=== PATIENT | male | born 1995 | race African-American/Black ===

== ENCOUNTER 2019-02-10 14:22 | Emergency (ER) | payer BC ==
[2019-02-10] MEDS ORDERED: ACETAMINOPHEN 325 MG TABLET PO ONE (15:03)
[2019-02-10] MEDS ORDERED: IBUPROFEN 600 MG TABLET PO ONE (15:04)
--- NOTE | 2019-02-10 15:05 | ER Document Report ---
HPI - HPI Time Seen by Provider: 02/10/19 14:53 Pain Level: 3 Context: Patient is a 23-year-old male who presents the emergency department with a chief complaint of right hand pain. He states that he was tossing a ball around yesterday and he went and dove for the ball and hit the dorsal aspect of his hand on the ground. He was okay yesterday, and when he woke up this morning he had increased swelling and pain to the area. He has not taken any medication to help with his pain. Denies any past medical history. He does not take any medications. - CONSTITUTIONAL Constitutional: DENIES: Fever, Chills - EENT EENT: DENIES: Sore Throat - NEURO Neurology: DENIES: Headache - CARDIOVASCULAR Cardiovascular: DENIES: Chest pain - RESPIRATORY Respiratory: DENIES: Trouble Breathing - MUSCULOSKELETAL Musculoskeletal: REPORTS: Extremity pain - right hand, Swelling - right hand. DENIES: Back Pain, Neck Pain - DERM Skin Color: Normal Skin Problems: None Past Medical History - Social History Smoking Status: Never Smoker Family History: Reviewed & Not Pertinent Vertical Provider Document - CONSTITUTIONAL Agree With Documented VS: Yes Exam Limitations: No Limitations General Appearance: No Apparent Distress - INFECTION CONTROL TRAVEL OUTSIDE OF THE [place] IN LAST 30 DAYS: No - HEENT HEENT: Atraumatic, Normocephalic, PERRLA - NECK Neck: Normal Inspection - RESPIRATORY Respiratory: Breath Sounds Normal, No Respiratory Distress - CARDIOVASCULAR Cardiovascular: Regular Rate, Regular Rhythm Pulses: Normal: Radial - MUSCULOSKELETAL/EXTREMETIES Musculoskeletal/Extremeties: FROM - decreased ROM to R hand at 5th diget, Tender - Right hand at 5th metacarpal area, Edema - Right hand, Eccymosis - mild eccy mosis to right medial hand - NEURO Level of Consciousness: Awake, Alert, Appropriate Motor/Sensory: No Motor Deficit, No Sensory Deficit - DERM Integumentary: Warm, Dry, No Rash Course - Re-evaluation Re-evalutation: 02/10/19 15:59 The patient has a boxer's fracture to his fifth metacarpal. He will be placed in a splint here in the emergency department. He will follow-up with orthopedics in regards to this visit. Ibuprofen and Tylenol for pain relief. I do not suspect a tendon rupture, as the patient is able to flex and extend his all digits of his right hand. Verbal discharge instructions were given to the patient. They verbalized understanding. They are stable for discharge. - Vital Signs Vital signs: Temp Pulse Resp BP Pulse Ox 98.5 F 62 16 133/76 H 99 02/10/19 14:52 02/10/19 14:52 02/10/19 14:52 02/10/19 14:52 02/10/19 14:52 Procedures - Immobilization Right Hand Pre-Proc Neuro Vasc Exam: Normal Immobilizer type: Ulnar Performed by: PCT Post-Proc Neuro Vasc Exam: Normal, Unchanged from pre-exam Alignment checked and good: Yes Discharge - Discharge Clinical Impression: Fracture of fifth metacarpal bone Qualifiers: Fracture type: closed Condition: Stable Disposition: HOME, SELF-CARE Additional Instructions: You were seen today in the emergency department for right hand pain you have a fracture in your hand. Please follow-up with orthopedics in regards to this visit. Please take ibuprofen 600 mg and Tylenol 1000 mg as needed for your pain. Please keep your splint dry. If you have worsening symptoms, please return to the emergency department. Forms: Special Work Note, Return to Work Referrals: ADELA LUTZ MD [ACTIVE STAFF] - Follow up tomorrow
--- NOTE | 2019-02-10 15:38 | RADIOLOGY REPORT (SQ) ---
EXAM DESCRIPTION: HAND RIGHT 3 VIEWS COMPLETED DATE/TIME: 02/10/2019 3:28 pm REASON FOR STUDY: trauma COMPARISON: None. EXAM PARAMETERS: NUMBER OF VIEWS: Two view. TECHNIQUE: AP, lateral and oblique radiographic images acquired of the right hand. LIMITATIONS: None. FINDINGS: MINERALIZATION: Normal. BONES: Comminuted fracture of the distal 5th metacarpal with extension into the metacarpal phalangeal joint. JOINTS: No effusions. SOFT TISSUES: No soft tissue swelling. No foreign body. OTHER: No other significant finding. IMPRESSION: 5th metacarpal fracture. TECHNICAL DOCUMENTATION: JOB ID: [id number] [employer]- All Rights Reserved Reading location - IP/workstation name: [email or web address]
[2019-02-10 16:29] VITALS: BP 136/90
== END 2019-02-10 16:23 | disposition home or self-care (01) ==
LOC: ER 14:22
PROC: 2W3CX1Z Immobilization of Right Lower Arm using Splint (ICD-10-PCS; principal; 2019-02-10)
DX: S62.306A Unspecified fracture of fifth metacarpal bone, right hand, initial encounter for closed fracture (principal); M79.641 Pain in right hand; M79.89 Other specified soft tissue disorders; W22.8XXA Striking against or struck by other objects, initial encounter; Y93.79 Activity, other specified sports and athletics
CPT/HCPCS: 99283